=== PATIENT | female | born 1975 | race African-American/Black ===

== ENCOUNTER 2018-03-03 23:50 | Inpatient (IN) | payer BC, OTHER ==
[~2018-03-03] VITALS: Ht 167.6 cm; Wt 72.6 kg
[~2018-03-03 23:50] MED LIST: ALLEGRA30 MG; AMOXICILLIN 50500 M1 PO
[2018-03-04] VITALS (9 sets, daily range): BP systolic 98–146; BP diastolic 70–92
[2018-03-04] MEDS ORDERED: NORVASC5 MG PO (00:14)
[2018-03-04] MEDS ORDERED: CLONIDINE0.1 PO (00:14)
[2018-03-04] MEDS ORDERED: METOPROLOL SUCC50 MG PO (00:14)
[2018-03-04 00:29] LABS: ABSOLUTE NEUTROPHILS 3.3 thou/uL (1.4-8.2); BASOPHILS 0.4 % (0.0-2.0); EOSINOPHILS 0.8 % (0.0-3.0); HEMATOCRIT 31.6 % (37.0-47.0); HEMOGLOBIN 10.7 gm/dL (12.0-15.0); LYMPHOCYTES 35.4 % (24.0-44.0); MCH 35.1 pg (26.0-34.0); MCHC 33.9 g/dL (28.0-37.0); MCV 103.6 fL (80.0-100.0); MONOCYTES 7.8 % (1.0-8.0); PLATELET COUNT 76 thou/uL (150-400); POLYS 55.6 % (36.0-66.0); RBC 3.05 mil/uL (4.20-5.00); RDW 13.6 % (10.5-14.5)
[2018-03-04 00:38] LABS: CALCIUM 8.2 mg/dL (8.5-10.1); POTASSIUM 3.2 mmol/L (3.5-5.1)
[2018-03-04 00:42] LABS: TOTAL BILIRUBIN 4.3 mg/dL (<0.1-1.0)
[2018-03-04 00:57] LABS: TOTAL PROTEIN 9.8 g/dL (6.4-8.2)
[2018-03-04 03:00] LABS: URINE BILIRUBIN 3+ (Negative); URINE BLOOD TRACE (Negative); URINE CLARITY SL CLOUDY; URINE COLOR ORANGE; URINE GLUCOSE-RANDOM* TRACE (Negative); URINE KETONES 1+ (Negative); URINE LEUKOCYTES 2+ (Negative); URINE NITRITE POSITIVE (Negative); URINE PROTEIN (DIPSTICK) 1+ (Negative); URINE UROBILINOGEN >= 8.0 E.U./dl (0.2-1.0)
[2018-03-04 03:10] LABS: CASTS None Seen /LPF (None Seen); CRYSTALS None Seen /LPF (None Seen); ICTOTEST (BILI CONFIRMATORY) Positive (Negative); MUCUS 0-3 Light strn/LPF (None Seen); SQUAMOUS 4-10 Moderate /LPF (0-3); URINE RBC 0-2 Rare /HPF (0-2); URINE WBC 6-15 Few /HPF (0-5)
[2018-03-04 03:17] LABS: AMP/METHAMP Negative (Negative); BARBITURATES Negative (Negative); BENZODIAZEPINES Negative (Negative); COCAINE Negative (Negative); METHADONE Negative (Negative); OPIATES Negative (Negative); PCP Negative (Negative)
[2018-03-04 10:02] LABS: CREATININE 0.9 mg/dL (0.6-1.0); MAGNESIUM 1.9 mg/dL (1.8-2.4); POTASSIUM 3.5 mmol/L (3.5-5.1)
[2018-03-05 04:05] VITALS: BP 161/112
[2018-03-05 04:30] VITALS: BP 118/92
[2018-03-05 05:00] VITALS: BP 113/88
[2018-03-05 06:00] VITALS: BP 129/90
[2018-03-05 08:09] LABS: CALCIUM 7.8 mg/dL (8.5-10.1); CREATININE 0.7 mg/dL (0.6-1.0); MAGNESIUM 1.1 mg/dL (1.8-2.4); PHOSPHORUS 3.2 mg/dL (2.5-4.9)
[2018-03-06 07:00] VITALS: BP 133/100
[2018-03-06 08:00] VITALS: BP 143/101
[2018-03-06 09:00] VITALS: BP 144/104
[2018-03-06 11:00] VITALS: BP 114/90
[2018-03-06 12:12] VITALS: BP 114/90
== END 2018-03-06 13:10 | disposition home or self-care (01) | DRG 690 ==
LOC: ER 23:50 → 3W 03-04 00:52 → EROBS 03-04 00:52 → 3W 03-04 01:18 → ICU 03-05 04:08
PROVIDERS: Emergency Medicine; Nurse Practitioner Acute Care
DX: N39.0 Urinary tract infection, site not specified (principal); E83.42 Hypomagnesemia; E87.6 Hypokalemia; R74.0 Nonspecific elevation of levels of transaminase and lactic acid dehydrogenase [LDH]; F10.10 Alcohol abuse, uncomplicated; Z79.899 Other long term (current) drug therapy; Z88.1 Allergy status to other antibiotic agents; Z80.3 Family history of malignant neoplasm of breast
CPT/HCPCS: 10078; 10879

== ENCOUNTER 2018-12-07 08:49 | Emergency (ER) | payer BC, OTHER ==
[~2018-12-07] VITALS: Ht 167.6 cm; Wt 68.0 kg
[~2018-12-07 08:49] MED LIST changes: +CLONIDINE0.1 PO; +METOPROLOL SUCC50 MG PO; +NORVASC5 MG PO
[2018-12-07 09:26] LABS: URINE BILIRUBIN 2+ (Negative); URINE BLOOD 3+ (Negative); URINE CLARITY CLOUDY; URINE GLUCOSE-RANDOM* NEGATIVE (Negative); URINE KETONES TRACE (Negative); URINE LEUKOCYTES-REFLEX TRACE (Negative); URINE PROTEIN (DIPSTICK) 2+ (Negative); URINE SPECIFIC GRAVITY 1.025 (1.005-1.035)
[2018-12-07 09:28] LABS: URINE NITRITE-REFLEX POSITIVE (Negative)
[2018-12-07 09:29] LABS: ICTOTEST (BILI CONFIRMATORY) Positive (Negative); URINE COLOR BROWN
[2018-12-07 09:40] LABS: BACTERIA-REFLEX 1-9 Few /HPF (None Seen); CASTS None Seen /LPF (None Seen); CRYSTALS None Seen /LPF (None Seen); SQUAMOUS 0-3 Few /LPF (0-3); URINE RBC >20 Many /HPF (0-2); URINE WBC-REFLEX 0-5 Rare /HPF (0-5)
[2018-12-07 10:05] LABS: ABSOLUTE NEUTROPHILS 2.6 thou/uL (1.4-8.2); BASOPHILS 0.5 % (0.0-2.0); EOSINOPHILS 1.6 % (0.0-3.0); HEMATOCRIT 24.5 % (37.0-47.0); HEMOGLOBIN 8.2 gm/dL (12.0-15.0); LYMPHOCYTES 44.4 % (24.0-44.0); MCH 31.9 pg (26.0-34.0); MCHC 33.5 g/dL (28.0-37.0); MCV 95.4 fL (80.0-100.0); PLATELET COUNT 226 thou/uL (150-400); POLYS 45.5 % (36.0-66.0); RBC 2.57 mil/uL (4.20-5.00); RDW 17.2 % (10.5-14.5); WBC 5.8 thou/uL (4.0-11.0)
[2018-12-07 10:15] LABS: APTT 28.3 Seconds (24.5-32.8); INR 1.4; PROTIME 14.9 Seconds (9.3-11.4)
[2018-12-07 10:18] LABS: CALCIUM 8.3 mg/dL (8.5-10.1); CREATININE 0.7 mg/dL (0.6-1.0); POTASSIUM 3.3 mmol/L (3.5-5.1)
[2018-12-07 10:25] LABS: ALBUMIN 2.4 g/dL (3.4-5.0); DIRECT BILIRUBIN 1.4 mg/dL (<0.1-0.3); TOTAL BILIRUBIN 1.8 mg/dL (<0.1-1.0); TOTAL PROTEIN 8.2 g/dL (6.4-8.2)
[2018-12-07] MEDS ORDERED: PROVERA10 MG PO (12:35)
[2018-12-07 12:39] VITALS: BP 111/83
== END 2018-12-07 12:47 | disposition home or self-care (01) ==
LOC: ER 08:49
PROVIDERS: Emergency Medicine
DX: N92.1 Excessive and frequent menstruation with irregular cycle (principal); I10 Essential (primary) hypertension; Z98.51 Tubal ligation status; Z88.1 Allergy status to other antibiotic agents

== ENCOUNTER 2019-05-30 18:33 | Emergency (ER) | payer BC, OTHER ==
[~2019-05-30] VITALS: Ht 167.6 cm; Wt 77.1 kg
[~2019-05-30 18:33] MED LIST changes: +PROVERA10 MG PO
[2019-05-30 18:50] LABS: ABSOLUTE NEUTROPHILS 3.3 thou/uL (1.4-8.2); BASOPHILS 1.3 % (0.0-2.0); EOSINOPHILS 1.7 % (0.0-3.0); HEMATOCRIT 37.1 % (37.0-47.0); HEMOGLOBIN 12.2 gm/dL (12.0-15.0); LYMPHOCYTES 45.5 % (24.0-44.0); MCH 32.5 pg (26.0-34.0); MCHC 32.9 g/dL (28.0-37.0); MCV 98.8 fL (80.0-100.0); MONOCYTES 6.7 % (1.0-8.0); PLATELET COUNT 211 thou/uL (150-400); POLYS 44.8 % (36.0-66.0); RBC 3.76 mil/uL (4.20-5.00); RDW 15.8 % (10.5-14.5); WBC 7.4 thou/uL (4.0-11.0)
[2019-05-30 19:02] LABS: CALCIUM 8.4 mg/dL (8.5-10.1); CREATININE 0.8 mg/dL (0.6-1.0); POTASSIUM 3.4 mmol/L (3.5-5.1)
[2019-05-30 19:07] LABS: ALBUMIN 3.1 g/dL (3.4-5.0); TOTAL BILIRUBIN 2.1 mg/dL (<0.1-1.0); TOTAL PROTEIN 8.8 g/dL (6.4-8.2)
[2019-05-30 19:36] LABS: INR 1.4; PROTIME 14.3 Seconds (9.3-11.4)
[2019-05-30 19:57] LABS: URINE BILIRUBIN NEGATIVE (Negative); URINE BLOOD 3+ (Negative); URINE CLARITY CLEAR; URINE COLOR YELLOW; URINE GLUCOSE-RANDOM* NEGATIVE (Negative); URINE KETONES NEGATIVE (Negative); URINE LEUKOCYTES TRACE (Negative); URINE NITRITE NEGATIVE (Negative); URINE PROTEIN (DIPSTICK) 1+ (Negative); URINE SPECIFIC GRAVITY <= 1.005 (1.005-1.035); URINE UROBILINOGEN 0.2 E.U./dl (0.2-1.0)
[2019-05-30 20:07] LABS: CASTS None Seen /LPF (None Seen); CRYSTALS None Seen /LPF (None Seen); SQUAMOUS 0-3 Few /LPF (0-3); URINE RBC 3-10 Few /HPF (0-2)
[2019-05-30 20:08] LABS: BACTERIA 1-9 Few /HPF (None Seen); URINE WBC 0-5 Rare /HPF (0-5)
[2019-05-30 20:32] VITALS: BP 154/93
== END 2019-05-30 20:34 ==
LOC: ER 18:33
PROVIDERS: Physician Assistant
DX: F10.129 Alcohol abuse with intoxication, unspecified (principal); I10 Essential (primary) hypertension; Z98.51 Tubal ligation status; Z88.1 Allergy status to other antibiotic agents; V89.2XXA Person injured in unspecified motor-vehicle accident, traffic, initial encounter; Y93.89 Activity, other specified; Y92.488 Other paved roadways as the place of occurrence of the external cause; Y99.8 Other external cause status; Y90.8 Blood alcohol level of 240 mg/100 ml or more